=== PATIENT | male | born 1950 | race Caucasian/White ===

== ENCOUNTER 2023-07-14 12:16 | Observation (INO) ==
[2023-07-14] MEDS: Lactated Ringers 1000 ml BAG 1,000 ML IV ONE (13:33)
[2023-07-14 13:47] LABS: ABS Lymphocytes 0.4 10^3/uL (1.0-4.8); ABS Monocytes 0.5 10^3/uL (0.0-1.1); ABS Neutrophils 7.3 10^3/uL (1.5-7.6); Eosinophil % 0.4 %; Hematocrit 33.4 % (38-53); Hemoglobin 11.2 g/dL (13.2-16.3); Lymphocyte % 4.8 %; Mean Corpuscular Hemoglobin 31.5 pg (27-33); Mean Corpuscular Hgb Conc 33.5 g/dL (31-36); Mean Corpuscular Volume 93.9 fL (80-97); Mean Platelet Volume 7.6 fL (7.5-11.2); Platelet Count 236 10^3/uL (150-450); Red Blood Count 3.56 10^6/uL (4.06-5.63); Red Cell Distribution Width 13.8 % (12-17); White Blood Count 8.3 10^3/uL (3.6-10.2)
[2023-07-14 13:51] LABS: INR 1.06 (0.83-1.13)
[2023-07-14 14:57] LABS: Albumin 3.9 g/dL (3.2-5.2); Albumin/Globulin Ratio 1.6 (1-3); C Reactive Protein 2.92 mg/L (<8.01); Creatinine, Serum 2.76 mg/dL (0.67-1.17); Globulin 2.5 g/dL (2-4); Magnesium 2.4 mg/dL (1.9-2.7); Potassium 4.5 mmol/L (3.5-5.0); Total Bilirubin 0.7 mg/dL (0.2-1.0); Total Protein 6.4 g/dL (6.4-8.9); eGFR CKD-EPI 23.8 (>60)
[2023-07-14 14:58] LABS: Urine Appearance Clear; Urine Bilirubin Negative (Negative); Urine Blood Trace (Negative); Urine Color Light-Yellow; Urine Glucose Negative (Negative); Urine Ketones Negative (Negative); Urine Nitrite Negative (Negative); Urine Protein Negative (Negative); Urine Specific Gravity 1.011 (1.002-1.030); Urine Urobilinogen Negative (Negative); Urine pH 5.5 (5.0-8.0)
[2023-07-14 15:53] LABS: High Sensitivity Troponin 1 Hr 16 pg/mL (<20)
[2023-07-14] MEDS ORDERED: Senna TAB 8.6 mg TAB PO PRN (16:42)
[2023-07-14] MEDS ORDERED: Polyethylene Glycol 3350 17 GM PACKET PO PRN (16:42)
[2023-07-14] MEDS: hydrALAZINE 20 mg/ml 1 ML Vial IV IV SLOW PU ONE (21:48)
[2023-07-14] MEDS: Enoxaparin 30 MG/0.3 ML SYR SUBCUT SCH (22:57)
[2023-07-15 05:53] LABS: ABS Eosinophils 0.1 10^3/uL (0.0-0.5); ABS Lymphocytes 0.9 10^3/uL (1.0-4.8); ABS Monocytes 0.6 10^3/uL (0.0-1.1); ABS Neutrophils 5.2 10^3/uL (1.5-7.6); Eosinophil % 0.8 %; Hematocrit 33.3 % (38-53); Hemoglobin 11.5 g/dL (13.2-16.3); Lymphocyte % 12.7 %; Mean Corpuscular Hgb Conc 34.5 g/dL (31-36); Mean Corpuscular Volume 92.7 fL (80-97); Mean Platelet Volume 7.9 fL (7.5-11.2); Platelet Count 222 10^3/uL (150-450); Red Blood Count 3.59 10^6/uL (4.06-5.63); Red Cell Distribution Width 13.7 % (12-17); White Blood Count 6.7 10^3/uL (3.6-10.2)
[2023-07-15 06:21] LABS: Calcium 8.7 mg/dL (8.6-10.3); Creatinine, Serum 2.24 mg/dL (0.67-1.17); Potassium 3.9 mmol/L (3.5-5.0); eGFR CKD-EPI 30.6 (>60)
[2023-07-15] MEDS: Enoxaparin 40 MG/0.4 ML SYR SUBCUT SCH (07:26)
[2023-07-15] MEDS ORDERED: Sulfur Hexaflouride MICROSPHR 25 MG VIAL ONE (09:22)
[2023-07-15 14:28] VITALS: BP 111/69
== END 2023-07-15 18:00 | disposition home health service (06) ==
LOC: EDHOLD 12:16 → ED 12:16 → MEDTELE 20:19
PROVIDERS: ADMIT Hospitalist; ATTEND Hospitalist

== ENCOUNTER 2023-12-12 16:08 | Inpatient (IN) ==
[2023-12-12 17:11] LABS: ABS Lymphocytes 0.3 10^3/uL (1.0-4.8); ABS Monocytes 0.4 10^3/uL (0.0-1.1); ABS Nucleated RBC 0.01 10^3/ul; Hematocrit 29.5 % (38-53); Hemoglobin 10.1 g/dL (13.2-16.3); Lymphocyte % 2.8 %; Mean Corpuscular Hemoglobin 32.6 pg (27-33); Mean Corpuscular Hgb Conc 34.1 g/dL (31-36); Mean Corpuscular Volume 95.6 fL (80-97); Mean Platelet Volume 7.6 fL (7.5-11.2); Nucleated Red Blood Cells % 0.1 %/100WBC (0.0-0.8); Platelet Count 271 10^3/uL (150-450); Red Blood Count 3.08 10^6/uL (4.06-5.63); Red Cell Distribution Width 13.6 % (12-17); White Blood Count 9.7 10^3/uL (3.6-10.2)
[2023-12-12 18:16] LABS: ALT 15 U/L (7-52); AST 22 U/L (13-39); Albumin 3.8 g/dL (3.2-5.2); Albumin/Globulin Ratio 1.5 (1-3); Alkaline Phosphatase 85 U/L (35-149); Anion Gap 8 mmol/L (2-16); Blood Urea Nitrogen 39 mg/dL (6-24); CO2 Carbon Dioxide 22 mmol/L (22-32); Calcium 8.8 mg/dL (8.6-10.3); Chloride 109 mmol/L (101-111); Creatinine, Serum 2.32 mg/dL (0.67-1.17); Globulin 2.5 g/dL (2-4); Glucose 151 mg/dL (70-100); Potassium 4.6 mmol/L (3.5-5.0); Sodium 139 mmol/L (135-145); Total Bilirubin 0.9 mg/dL (0.2-1.0); Total Protein 6.3 g/dL (6.4-8.9); eGFR CKD-EPI 29.1 (>60)
[2023-12-12] MEDS ORDERED: Sulfur Hexaflouride MICROSPHR 25 MG VIAL IV PRN (18:47)
[2023-12-12 18:53] LABS: High Sensitivity Troponin 1 Hr 44 pg/mL (<20)
[2023-12-12 19:25] LABS: % Iron Saturation 10 % (15-55); .Transferrin 265 mg/dL (203-362); Iron 37 ug/dL (50-212); Total Iron Binding Capacity 371 mcg/dL (250-450); Unsaturated Iron Binding 334 ug/dL
[2023-12-12] MEDS ORDERED: LORazepam 2 mg VIAL 1 ml IV PUSH PRN ×2 (19:35→19:54)
[2023-12-12] MEDS ORDERED: Lorazepam PYXIS KEY PRN (19:35)
[2023-12-12 19:36] LABS: TSH Ultra Thyroid Stim Horm 1.02 mcIU/mL (0.34-5.60)
[2023-12-12 19:41] LABS: Creatine Kinase 178 U/L (10-223)
[2023-12-12 19:44] LABS: Ferritin 13.9 ng/mL (24-336)
[2023-12-12 19:47] LABS: Folate > 20.00 ng/mL (5.90-24.80)
[2023-12-12 19:48] LABS: Vitamin B12 208 pg/mL (180-914)
[2023-12-12] MEDS: Ondansetron 4 mg VIAL 2 MG/ML 2 ml VIAL IV ONE (19:56)
[2023-12-12] MEDS: Lactated Ringers 1000 ml BAG 1,000 ML IV SCH (20:01)
[2023-12-12] MEDS: Heparin 5000 UNITS/ML 1 mL VIAL SUBCUT SCH (22:11)
[2023-12-12] MEDS: Ondansetron 4 mg VIAL 2 MG/ML 2 ml VIAL IV PRN (23:41)
[2023-12-13 01:21] LABS: Urine Appearance Clear; Urine Bilirubin Negative (Negative); Urine Blood 1+ (Negative); Urine Color Light-Yellow; Urine Glucose Trace (Negative); Urine Ketones Trace (Negative); Urine Nitrite Negative (Negative); Urine Protein 1+ (>=30 mg/dL) (Negative); Urine Specific Gravity 1.016 (1.002-1.030); Urine Urobilinogen Negative (Negative); Urine pH 5.5 (5.0-8.0)
[2023-12-13 01:35] LABS: Urine Bacteria Absent /HPF (Absent); Urine Red Blood Cell Trace(0-2/hpf) /HPF (0-Trace); Urine White Blood Cell Absent /HPF (0-Trace)
[2023-12-13 07:00] LABS: Calcium 8.8 mg/dL (8.6-10.3); Creatinine, Serum 2.2 mg/dL (0.67-1.17); Magnesium 2.1 mg/dL (1.9-2.7); Potassium 4.3 mmol/L (3.5-5.0)
[2023-12-13 07:15] LABS: ABS Lymphocytes 0.7 10^3/uL (1.0-4.8); ABS Monocytes 0.9 10^3/uL (0.0-1.1); ABS Neutrophils 9.9 10^3/uL (1.5-7.6); Hematocrit 28.2 % (38-53); Hemoglobin 9.3 g/dL (13.2-16.3); Lymphocyte % 6.3 %; Mean Corpuscular Hemoglobin 31.7 pg (27-33); Mean Corpuscular Hgb Conc 32.9 g/dL (31-36); Mean Corpuscular Volume 96.4 fL (80-97); Mean Platelet Volume 7.9 fL (7.5-11.2); Platelet Count 253 10^3/uL (150-450); Red Blood Count 2.92 10^6/uL (4.06-5.63); Red Cell Distribution Width 13.5 % (12-17); White Blood Count 11.5 10^3/uL (3.6-10.2)
[2023-12-14] MEDS: Pantoprazole VIAL 40 MG VIAL IV ONE (04:04)
[2023-12-14 04:12] LABS: INR 1.2 (0.85-1.14)
[2023-12-14 04:13] LABS: ABS Lymphocytes 1.2 10^3/uL (1.0-4.8); ABS Monocytes 0.8 10^3/uL (0.0-1.1); ABS Neutrophils 7.5 10^3/uL (1.5-7.6); Eosinophil % 0.2 %; Hematocrit 24.6 % (38-53); Hemoglobin 8.4 g/dL (13.2-16.3); Lymphocyte % 12.2 %; Mean Corpuscular Hemoglobin 32.2 pg (27-33); Mean Corpuscular Hgb Conc 34.2 g/dL (31-36); Mean Corpuscular Volume 94.1 fL (80-97); Mean Platelet Volume 7.7 fL (7.5-11.2); Platelet Count 266 10^3/uL (150-450); Red Blood Count 2.61 10^6/uL (4.06-5.63); Red Cell Distribution Width 13.5 % (12-17); White Blood Count 9.5 10^3/uL (3.6-10.2)
[2023-12-14] MEDS: Pantoprazole VIAL 40 MG VIAL ONE (04:32)
[2023-12-14 05:32] LABS: Calcium 7.9 mg/dL (8.6-10.3); Creatinine, Serum 1.99 mg/dL (0.67-1.17); Magnesium 1.8 mg/dL (1.9-2.7); Potassium 3.6 mmol/L (3.5-5.0)
[2023-12-14] MEDS: Magnesium Sulfate 2 gm BAG 2 GM/50 ML BAG IVPB ONE (05:52)
[2023-12-14] MEDS: KCL 20 MEQ/100 ML IVPREMIX 20 MEQ/100 ML BAG IV SCH (07:19)
[2023-12-14 08:52] LABS: Hematocrit 23.6 % (38-53); Hemoglobin 7.9 g/dL (13.2-16.3)
[2023-12-14] MEDS ORDERED: Midazolam 10 mg/10 ml VIAL 1 mg/ml 10 ml VIAL (10 mg) ONE (09:39)
[2023-12-14] MEDS ORDERED: fentaNYL 100 mcg/2 ml 50 MCG/ML VIAL ONE (09:40)
[2023-12-14 12:56] LABS: Hematocrit 21.8 % (38-53); Hemoglobin 7.1 g/dL (13.2-16.3)
[2023-12-14 16:28] LABS: Hematocrit 22.3 % (38-53); Hemoglobin 7.5 g/dL (13.2-16.3)
[2023-12-14] MEDS: Pantoprazole VIAL 40 MG VIAL IV SCH (16:31)
[2023-12-15 04:16] LABS: ABS Eosinophils 0.1 10^3/uL (0.0-0.5); ABS Lymphocytes 0.9 10^3/uL (1.0-4.8); ABS Monocytes 0.6 10^3/uL (0.0-1.1); ABS Neutrophils 4.1 10^3/uL (1.5-7.6); Eosinophil % 1.7 %; Hematocrit 22.4 % (38-53); Hemoglobin 7.6 g/dL (13.2-16.3); Lymphocyte % 15.1 %; Mean Corpuscular Hemoglobin 32.2 pg (27-33); Mean Corpuscular Volume 94.8 fL (80-97); Mean Platelet Volume 8.1 fL (7.5-11.2); Platelet Count 185 10^3/uL (150-450); Red Blood Count 2.36 10^6/uL (4.06-5.63); Red Cell Distribution Width 13.4 % (12-17); White Blood Count 5.6 10^3/uL (3.6-10.2)
[2023-12-15 04:37] LABS: Calcium 6.7 mg/dL (8.6-10.3); Creatinine, Serum 1.68 mg/dL (0.67-1.17); Magnesium 1.9 mg/dL (1.9-2.7); Potassium 3.6 mmol/L (3.5-5.0); eGFR CKD-EPI 42.9 (>60)
[2023-12-15] MEDS: Potassium Chlor 20 meq TAB.ER PO ONE (08:31)
[2023-12-16 05:48] LABS: ABS Eosinophils 0.1 10^3/uL (0.0-0.5); ABS Lymphocytes 0.9 10^3/uL (1.0-4.8); ABS Monocytes 0.5 10^3/uL (0.0-1.1); ABS Neutrophils 4.6 10^3/uL (1.5-7.6); Eosinophil % 2.4 %; Hematocrit 24.9 % (38-53); Hemoglobin 8.4 g/dL (13.2-16.3); Mean Corpuscular Hgb Conc 33.6 g/dL (31-36); Mean Platelet Volume 7.9 fL (7.5-11.2); Platelet Count 216 10^3/uL (150-450); Red Blood Count 2.62 10^6/uL (4.06-5.63); Red Cell Distribution Width 13.6 % (12-17); White Blood Count 6.1 10^3/uL (3.6-10.2)
[2023-12-16 06:03] LABS: Albumin/Globulin Ratio 1.5 (1-3); Calcium 7.5 mg/dL (8.6-10.3); Creatinine, Serum 1.83 mg/dL (0.67-1.17); Magnesium 1.9 mg/dL (1.9-2.7); Total Bilirubin 0.5 mg/dL (0.2-1.0); eGFR CKD-EPI 38.7 (>60)
[2023-12-17 06:04] LABS: ABS Eosinophils 0.2 10^3/uL (0.0-0.5); ABS Monocytes 0.6 10^3/uL (0.0-1.1); ABS Neutrophils 4.5 10^3/uL (1.5-7.6); Eosinophil % 2.5 %; Hematocrit 23.1 % (38-53); Lymphocyte % 15.4 %; Mean Corpuscular Hemoglobin 32.4 pg (27-33); Mean Corpuscular Hgb Conc 34.5 g/dL (31-36); Mean Corpuscular Volume 93.9 fL (80-97); Platelet Count 213 10^3/uL (150-450); Red Blood Count 2.46 10^6/uL (4.06-5.63); Red Cell Distribution Width 13.3 % (12-17); White Blood Count 6.2 10^3/uL (3.6-10.2)
[2023-12-18 05:26] LABS: Hematocrit 23.2 % (38-53); Hemoglobin 8.1 g/dL (13.2-16.3); Mean Corpuscular Hemoglobin 32.6 pg (27-33); Mean Corpuscular Hgb Conc 34.8 g/dL (31-36); Mean Corpuscular Volume 93.8 fL (80-97); Mean Platelet Volume 7.9 fL (7.5-11.2); Platelet Count 218 10^3/uL (150-450); Red Blood Count 2.47 10^6/uL (4.06-5.63); White Blood Count 9.1 10^3/uL (3.6-10.2)
[2023-12-18 05:44] LABS: Albumin/Globulin Ratio 1.5 (1-3); Calcium 8.1 mg/dL (8.6-10.3); Creatinine, Serum 1.95 mg/dL (0.67-1.17); Potassium 4.3 mmol/L (3.5-5.0); Total Bilirubin 0.5 mg/dL (0.2-1.0); eGFR CKD-EPI 35.9 (>60)
[2023-12-18 13:58] VITALS: BP 144/66
== END 2023-12-18 14:33 | DRG 391 ==
LOC: EDHOLD 16:08 → ED 16:08 → SUATTDRO 18:42 → MEDTELE 22:25 → ICU 12-14 05:17 → SUATTDRO 12-15 10:32 → ICU 12-15 10:32 → MEDTELE 12-16 14:50
PROVIDERS: ADMIT Internal Medicine; ATTEND Internal Medicine